=== PATIENT | female | born 1955 | race Caucasian/White ===

== ENCOUNTER 2021-10-20 15:50 | Inpatient (IN) | payer MEDICARE, OTHER ==
[~2021-10-20] VITALS: Ht 157.5 cm; Wt 59.0 kg
[~2021-10-20 15:50] MED LIST: IBUPROFEN600 MG PO; NORCO 5-325 TA1 EACH PO
[2021-10-20 16:24] LABS: HEMOGLOBIN 13.9 gm/dl (12.3-15.3); RED BLOOD COUNT 4.7 M/UL (4.00-5.10)
[2021-10-20 16:26] LABS: BORDETELLA PARAPERTUSSIS Not Detected (Not Detectd); BORDETELLA PERTUSSIS Not Detected (Not Detectd); CHLAMYDIA PNEUMONIAE Not Detected (Not Detectd); CORONAVIRUS HKU1 Not Detected (Not Detectd); CORONAVIRUS NL63 Not Detected (Not Detectd); CORONAVIRUS OC43 Not Detected (Not Detectd); CORONOAVIRUS 229E Not Detected (Not Detectd); HUMAN METAPNEUMOVIRUS Not Detected (Not Detectd); HUMAN RHINOVIRUS/ENTEROVIRUS Not Detected (Not Detectd); INFLUENZA A Not Detected (Not Detectd); INFLUENZA B Not Detected (Not Detectd); MYCOPLASMA PNEUMONIAE Not Detected (Not Detectd); PARAINFLUENZA VIRUS 1 Not Detected (Not Detectd); PARAINFLUENZA VIRUS 2 Not Detected (Not Detectd); PARAINFLUENZA VIRUS 3 Not Detected (Not Detectd); PARAINFLUENZA VIRUS 4 Not Detected (Not Detectd); RESPIRATORY SYNCYTIAL VIRUS Not Detected (Not Detectd)
[2021-10-20 16:48] LABS: BUN/CREATININE RATIO 17 (0-10)
[2021-10-20 17:53] LABS: SARS-CoV-2 DETECTED (Not Detectd)
[2021-10-20] MEDS ORDERED: SYNTHROID50 MCG PO (22:55)
[2021-10-20] MEDS ORDERED: PAXIL10 MG PO (22:55)
[2021-10-21 07:35] LABS: HEMOGLOBIN 13.2 gm/dl (12.3-15.3); RED BLOOD COUNT 4.45 M/UL (4.00-5.10)
[2021-10-21 08:08] LABS: BUN/CREATININE RATIO 21 (0-10)
--- NOTE | 2021-10-21 13:01 | NUR ---
@08 TELE CALLED STATING THE PATIENT SPO2 HAD DECREASED INTO THE 70'S EVENTS FROM 806 TO 856 I CHECKED ON THE PATIENT SHE DID NOT APPEAR TO BE IN ANY DISTRESS, COLOR PINK SPO2 PROBE LOOSE ON FINGER, CHECKED PLEATH ON MONITOR IT WAS SHALLOW, CHANGED PULSE OX PROBE TO FINGER PLEATH DID NOT GET ANY BETTER THE PLEATH WAS VERY IRREGULAR, I CHANGED THE PULSE OX PROBE TO THE EAR NO BETTER, I CHANGED THE TELE BOX CORD TO THE PULSE OX NO PLEATH SAME, I CHANGED THE PULSE OX PROBE BACK TO THE FINGER PLEATH BETTER SPO2 LEVEL STILL LOW ON TELE BOX MONITOR, CHECKED WITH PORTABLE PULSE OX MACHINE READING WAS HIGHER THAN THE MONIOR BUT STILL LOW IN THE MID 80'S, AFTER TURING OXYGEN UP TO 5LPM AT THIS TIME I SPOKE WITH RT WE REMOVED THE PATIENTS FINGERNAIL SAO TOMEAN AND CHANGED THE SPO2 PROBE AGAIN SPO2 STILL LOW IN THE 80'S @ CHANGED PT TO HIGH FLOW NC 10LPM HAD TO INCREASE TO 15LPM WITH SPO2 STILL STAYING IN MID TO UPPER 80'S DR. MENDOSA CALLED AND NOTIFIED OF THE ABOVE @ [address] ON AIRVO AND CONSULT PULMONOLGY, CALLED AND NOTIFIED PULMONOLGY @899 [facility]
[2021-10-22 03:24] LABS: HEMOGLOBIN 12.2 gm/dl (12.3-15.3); RED BLOOD COUNT 4.26 M/UL (4.00-5.10)
[2021-10-22 03:34] LABS: WHITE BLOOD COUNT 14.8 K/UL (4.5-11.0)
[2021-10-22 04:04] LABS: BUN/CREATININE RATIO 21 (0-10)
[2021-10-23 10:41] LABS: HEMOGLOBIN 12.1 gm/dl (12.3-15.3); RED BLOOD COUNT 4.16 M/UL (4.00-5.10)
[2021-10-23 11:13] LABS: BUN/CREATININE RATIO 31 (0-10)
[2021-10-24 03:10] LABS: HEMOGLOBIN 12.6 gm/dl (12.3-15.3); RED BLOOD COUNT 4.29 M/UL (4.00-5.10)
[2021-10-24 03:34] LABS: BUN/CREATININE RATIO 33 (0-10)
[2021-10-25 08:34] LABS: HEMOGLOBIN 13.9 gm/dl (12.3-15.3); RED BLOOD COUNT 4.74 M/UL (4.00-5.10); WHITE BLOOD COUNT 18.1 K/UL (4.5-11.0)
[2021-10-25 09:02] LABS: BUN/CREATININE RATIO 35 (0-10)
[2021-10-26 07:30] LABS: HEMOGLOBIN 13.6 gm/dl (12.3-15.3); RED BLOOD COUNT 4.59 M/UL (4.00-5.10); WHITE BLOOD COUNT 17.5 K/UL (4.5-11.0)
[2021-10-26 07:49] LABS: BUN/CREATININE RATIO 32 (0-10)
--- NOTE | 2021-10-28 14:56 | NUR ---
PTs ROOM AIR SPO2 SATURATION WAS 78%
[2021-10-29 03:54] LABS: RED BLOOD COUNT 4.75 M/UL (4.00-5.10); WHITE BLOOD COUNT 14.9 K/UL (4.5-11.0)
[2021-10-29 04:20] LABS: BUN/CREATININE RATIO 24 (0-10)
== END 2021-10-29 13:57 | disposition home or self-care (01) | DRG 177 ==
LOC: ER1 15:50 → PROG CARE 18:21 → MED SURG 4 18:21 → CDU 18:21 → MED SURG 4 22:22 → PROG CARE 10-21 18:14
PROVIDERS: Internal Medicine; ADMIT Internal Medicine
PROC: 3E0333Z Introduction of Anti-inflammatory into Peripheral Vein, Percutaneous Approach (ICD-10-PCS; 2021-10-20)
PROC: XW033E5 Introduction of Remdesivir Anti-infective into Peripheral Vein, Percutaneous Approach, New Technology Group 5 (ICD-10-PCS; 2021-10-20)
PROC: 8E0ZXY6 Isolation (ICD-10-PCS; 2021-10-20)
PROC: XW033H5 Introduction of Tocilizumab into Peripheral Vein, Percutaneous Approach, New Technology Group 5 (ICD-10-PCS; principal; 2021-10-21)
PROC: 5A0955A Assistance with Respiratory Ventilation, Greater than 96 Consecutive Hours, High Flow/Velocity Cannula (ICD-10-PCS; 2021-10-21)
DX: U07.1 COVID-19 (principal); J12.82 Pneumonia due to coronavirus disease 2019; J80 Acute respiratory distress syndrome; D75.839 Thrombocytosis, unspecified; R74.01 Elevation of levels of liver transaminase levels; F41.1 Generalized anxiety disorder; K21.9 Gastro-esophageal reflux disease without esophagitis; E03.9 Hypothyroidism, unspecified; Z99.81 Dependence on supplemental oxygen; Z23 Encounter for immunization; Z98.51 Tubal ligation status; Z83.3 Family history of diabetes mellitus; Z82.0 Family history of epilepsy and other diseases of the nervous system; Z87.891 Personal history of nicotine dependence
CPT/HCPCS: 0240U; 36415; 36600; 71045; 80048; 80053; 81001; 82550; 82553; 82803; 83605; 83690; 83874; 83880; 84484; 85025; 85027; 85379; 85652; 86140; 87040; 87086; 87633; 93005; 94640; 94664; 94760; 96374; 99285; J0248; J0456; J0696; J1100; J1650; J7030; Q9967

== ENCOUNTER 2021-11-04 16:40 | Emergency (ER) | payer MEDICARE, OTHER ==
[~2021-11-04 16:40] MED LIST changes: +PAXIL10 MG PO; +SYNTHROID50 MCG PO
[2021-11-04 17:38] LABS: HEMOGLOBIN 12.7 gm/dl (12.3-15.3); RED BLOOD COUNT 4.2 M/UL (4.00-5.10); WHITE BLOOD COUNT 14.8 K/UL (4.5-11.0)
[2021-11-04 19:01] LABS: BUN/CREATININE RATIO 25 (0-10)
== END 2021-11-04 20:50 | disposition home or self-care (01) ==
LOC: ER1 16:40
PROVIDERS: Emergency Medicine
DX: U07.1 COVID-19 (principal); J12.82 Pneumonia due to coronavirus disease 2019; R04.0 Epistaxis; Z99.81 Dependence on supplemental oxygen; R00.0 Tachycardia, unspecified; F41.9 Anxiety disorder, unspecified; R73.9 Hyperglycemia, unspecified; J96.01 Acute respiratory failure with hypoxia; D75.839 Thrombocytosis, unspecified; R74.01 Elevation of levels of liver transaminase levels; Z79.899 Other long term (current) drug therapy
CPT/HCPCS: 30903; 30905; 80048; 82962; 85025; 85610; 85730; 96374; 96375; 99283; J2060; J2405; Q0177

== ENCOUNTER 2021-11-12 19:38 | Emergency (ER) | payer MEDICARE, OTHER ==
[2021-11-12 20:54] LABS: HEMOGLOBIN 9.8 gm/dl (12.3-15.3); RED BLOOD COUNT 3.12 M/UL (4.00-5.10); WHITE BLOOD COUNT 9.5 K/UL (4.5-11.0)
[2021-11-12 21:10] LABS: BUN/CREATININE RATIO 19 (0-10)
== END 2021-11-13 00:59 | disposition home or self-care (01) ==
LOC: ER1 19:38
PROVIDERS: Physician Assistant Medical
DX: U07.1 COVID-19 (principal); J12.82 Pneumonia due to coronavirus disease 2019; F41.9 Anxiety disorder, unspecified; R00.2 Palpitations; R09.02 Hypoxemia
CPT/HCPCS: 71045; 80053; 82550; 82553; 83874; 84484; 85025; 93005; 94664; 99285; Q9967

== ENCOUNTER → 2021-12-06 | Outpatient (CLI) | payer MEDICARE | LOC: KOH-I 11:02 | DX: U07.1 COVID-19 (principal); J12.82 Pneumonia due to coronavirus disease 2019; R91.8 Other nonspecific abnormal finding of lung field | CPT/HCPCS: 71046 ==

== ENCOUNTER → 2022-05-03 | Outpatient (CLI) | payer MEDICARE | LOC: KOH-I 09:55 | DX: R91.8 Other nonspecific abnormal finding of lung field (principal); Z86.16 Personal history of COVID-19 | CPT/HCPCS: 71250 ==